=== PATIENT | female | born 1935 | race Hispanic/Latino ===

== ENCOUNTER 2017-05-25 06:58 | Day surgery (SDC) | payer MEDICARE ==
[~2017-05-25] VITALS: Ht 152.4 cm; Wt 46.6 kg
[~2017-05-25 06:58] MED LIST: CLOP75TA14 PO; LEVO50TA4 PO; PRED10TA23 PO; SODIUM CHLORIDE 0.9% 1000ML 1,000 ML IV ONE
[2017-05-25 08:14] VITALS: BP 101/62
== END 2017-05-25 09:00 | disposition home or self-care (01) ==
LOC: DAH 06:58 → ENDO 06:58
PROVIDERS: ATTEND Internal Medicine
DX: R93.3 Abnormal findings on diagnostic imaging of other parts of digestive tract (principal); Z53.9 Procedure and treatment not carried out, unspecified reason
CPT/HCPCS: J7030

== ENCOUNTER 2017-05-30 07:00 | Day surgery (SDC) | payer MEDICARE ==
[~2017-05-30] VITALS: Ht 152.4 cm; Wt 45.9 kg
[2017-05-30 07:21] VITALS: BP 106/58
[2017-05-30] MEDS ORDERED: LEVOFLOXACIN 500 MG/D5W 100 ML 100 ML ONE (08:51)
[2017-05-30 10:08] VITALS: BP 121/59
[2017-05-30] MEDS ORDERED: ONDA4TAB4 PO (10:19)
[2017-05-30 10:35] VITALS: BP 113/58
[2017-05-30 10:44] VITALS: BP 108/55
[2017-05-30 10:59] VITALS: BP 96/53
[2017-05-31] MEDS ORDERED: CHOL500050 PO (17:40)
[2017-05-31] MEDS ORDERED: PRED2.5T PO (17:40)
[2017-05-31] MEDS ORDERED: RANI-248 PO (17:40)
[2017-05-31] MEDS ORDERED: SULF500T8 PO (17:40)
== END 2017-05-30 11:15 | disposition home or self-care (01) ==
LOC: ENDO 07:00 → DAH 07:00 → ENDO 11:15
PROVIDERS: ATTEND Internal Medicine
DX: K86.2 Cyst of pancreas (principal); E03.8 Other specified hypothyroidism; M81.8 Other osteoporosis without current pathological fracture; Z86.73 Personal history of transient ischemic attack (TIA), and cerebral infarction without residual deficits; I73.89 Other specified peripheral vascular diseases; Z79.01 Long term (current) use of anticoagulants; Z79.899 Other long term (current) drug therapy; Z98.890 Other specified postprocedural states; Z90.49 Acquired absence of other specified parts of digestive tract
CPT/HCPCS: 36415; 43238; 82150; 82378; 88173; 88305; A4215; J1956; J7030; 43232

== ENCOUNTER 2017-05-31 11:24 | Observation (INO) | payer MEDICARE ==
[~2017-05-31] VITALS: Ht 152.4 cm; Wt 47.9 kg
[~2017-05-31 11:24] MED LIST changes: +ONDA4TAB4 PO; -SODIUM CHLORIDE 0.9% 1000ML 1,000 ML IV ONE
[2017-05-31] MEDS ORDERED: ONDANSETRON ODT 4 MG TAB ONE (11:34)
[2017-05-31 12:02] LABS: BASOPHILS % (AUTO) 0.2 % (0.0-5.0); EOSINOPHILS % (AUTO) 0.2 % (0.0-8.0); HEMATOCRIT 37.2 % (36-48); LYMPHOCYTES % (AUTO) 12.7 % (21.0-51.0); MEAN CORPUSCULAR VOLUME 91.2 fL (79-99); MONOCYTES % (AUTO) 6.6 % (3.0-13.0); NEUTROPHILS % (AUTO) 80.3 % (40.0-77.0); PLATELET COUNT (AUTO) 208 K/uL (130-400); RED BLOOD CELL COUNT(AUTO) 4.08 MIL/uL (4.00-5.50); RED CELL DISTRIBUTION WIDTH 14.3 % (11.0-15.5); WHITE BLOOD COUNT (AUTO) 13.4 K/uL (4.8-10.8)
[2017-05-31 12:20] LABS: BILIRUBIN,TOTAL 1.1 mg/dL (0.2-1.0); CREATININE 0.7 mg/dL (0.5-1.5); POTASSIUM 3.4 mmol/L (3.5-5.1)
[2017-05-31 12:30] LABS: RAPID GROUP A STREP NEGATIVE (NEGATIVE)
[2017-05-31 12:32] LABS: B-TYPE NATRIURETIC PEPTIDE 39 pg/mL (0-100)
[2017-05-31] MEDS ORDERED: POTASSIUM CHLORIDE 20 MEQ ERTAB PO ONE (13:05)
[2017-05-31] MEDS ORDERED: SODIUM CHLORIDE 0.9% 1000ML 1,000 ML IV ONE (13:06)
[2017-05-31 14:15] LABS: APPEARANCE,URINE Clear (CLEAR); BILIRUBIN,URINE Negative (NEGATIVE); COLOR,URINE Yellow (YELLOW); GLUCOSE, URINE (UA) Negative (NEGATIVE); KETONES,URINE 15 mg/dL (NEGATIVE); LEUKOCYTE ESTERASE ,URINE Negative (NEGATIVE); NITRATE,URINE Negative (NEGATIVE); OCCULT BLOOD,URINE Moderate (NEGATIVE); PROTEIN,URINE Negative (NEGATIVE)
[2017-05-31 14:43] LABS: BACTERIA,URINE Rare /HPF (None Seen); SQUAMOUS EPITHELIAL CELL,UR Rare /LPF (0-2); WBC,URINE 0-1 /HPF (0-1)
[2017-05-31] MEDS ORDERED: SULF500T8 PO (17:40)
[2017-05-31] MEDS ORDERED: CHOL500050 PO (17:40)
[2017-05-31] MEDS ORDERED: PRED2.5T PO (17:40)
[2017-05-31] MEDS ORDERED: RANI-248 PO (17:40)
[2017-05-31 17:43] VITALS: BP 108/55
[2017-05-31] MEDS ORDERED: ONDANSETRON HCL 4 MG/2 ML VIAL IVP PRN (18:00)
[2017-05-31] MEDS ORDERED: CLONIDINE HCL 0.1 MG TABLET PO PRN (18:00)
[2017-05-31] MEDS ORDERED: MORPHINE SULFATE 2 MG/ML 1ML SYG IVP PRN (18:00)
[2017-05-31] MEDS ORDERED: ACETAMINOPHEN 325 MG TAB PO PRN ×2 (18:00)
[2017-05-31 20:00] VITALS: BP 98/48
[2017-05-31] MEDS ORDERED: LEVOFLOXACIN 500 MG/D5W 100 ML 100 ML IV SCH (20:00)
[2017-05-31] MEDS ORDERED: SODIUM CHLORIDE 0.9% 1000ML 1,000 ML IV SCH (22:45)
[2017-06-01] VITALS: BP 106/60
[2017-06-01 04:00] VITALS: BP 90/46
[2017-06-01 04:12] LABS: BASOPHILS % (AUTO) 0.2 % (0.0-5.0); EOSINOPHILS % (AUTO) 0.3 % (0.0-8.0); HEMATOCRIT 35.5 % (36-48); LYMPHOCYTES % (AUTO) 16.9 % (21.0-51.0); MEAN CORPUSCULAR HEMOGLOBIN 31.1 pg (27.0-33.0); MEAN CORPUSCULAR VOLUME 91.4 fL (79-99); MONOCYTES % (AUTO) 7.4 % (3.0-13.0); NEUTROPHILS % (AUTO) 75.2 % (40.0-77.0); PLATELET COUNT (AUTO) 221 K/uL (130-400); RED BLOOD CELL COUNT(AUTO) 3.89 MIL/uL (4.00-5.50); RED CELL DISTRIBUTION WIDTH 14.5 % (11.0-15.5); WHITE BLOOD COUNT (AUTO) 11.7 K/uL (4.8-10.8)
[2017-06-01 04:19] LABS: ALBUMIN 2.8 g/dL (3.5-5.0); BILIRUBIN,TOTAL 1.1 mg/dL (0.2-1.0); CREATININE 0.7 mg/dL (0.5-1.5); POTASSIUM 3.8 mmol/L (3.5-5.1); TOTAL PROTEIN, SERUM 5.8 g/dL (6.0-8.3)
[2017-06-01 08:00] VITALS: BP 99/56
[2017-06-01] MEDS ORDERED: HYDRALAZINE HCL 20 MG/ML VIAL IV PRN (09:00)
[2017-06-01] MEDS ORDERED: LACTULOSE 20 GM/30 ML UDCUP PO PRN (09:00)
[2017-06-01] MEDS ORDERED: NITROGLYCERIN 0.4 MG SL TAB SL PRN (09:00)
[2017-06-01] MEDS ORDERED: PANTOPRAZOLE SODIUM 40 MG TABLET.DR PO SCH (09:00)
[2017-06-01] MEDS ORDERED: ONDANSETRON HCL 4 MG/2 ML VIAL IV PRN (09:00)
[2017-06-01] MEDS ORDERED: ACETAMINOPHEN 325 MG TAB PO PRN ×2 (09:00)
[2017-06-01] MEDS ORDERED: MAG HYDROX/AL HYDROX/SIMETH ES 30 ML SUSP UDCUP PO PRN (09:00)
[2017-06-01] MEDS ORDERED: GUAIFENESIN-DM 200/20 MG 10 ML PO PRN (09:00)
[2017-06-01] MEDS ORDERED: ACETAMINOPHEN-CODEINE 300/30MG TAB PO PRN (09:45)
[2017-06-01] MEDS ORDERED: MORPHINE SULFATE 2 MG/ML 1ML SYG IVP PRN (09:45)
[2017-06-01 11:00] VITALS: BP 108/57
[2017-06-01 16:00] VITALS: BP 100/56
[2017-06-01] MEDS ORDERED: SULFASALAZINE 500 MG TAB.DR PO SCH (21:00)
[2017-06-02] MEDS ORDERED: PREDNISONE 5 MG TABLET PO SCH (09:00)
[2017-06-02] MEDS ORDERED: LEVOTHYROXINE 50 MCG TABLET PO SCH (09:00)
[2017-06-08] MEDS ORDERED: ERGOCALCIFEROL (VITAMIN D2) 50,000 UNIT CAPSULE PO SCH (09:00)
== END 2017-06-01 19:41 | disposition home or self-care (01) ==
LOC: EDH 11:24 → EDHIP 16:15 → 3BH 17:02
PROVIDERS: ADMIT Family Medicine; ATTEND Family Medicine
DX: R10.9 Unspecified abdominal pain (principal); E78.5 Hyperlipidemia, unspecified; K59.00 Constipation, unspecified; E03.9 Hypothyroidism, unspecified; I25.10 Atherosclerotic heart disease of native coronary artery without angina pectoris; R11.2 Nausea with vomiting, unspecified
CPT/HCPCS: 36415 ×2; 71045; 80053 ×2; 81001; 82150; 83690 ×2; 83880; 84484; 85025 ×2; 87804 ×2; 87880; 93005; 96361; 96365; 99285; G0378 ×27; J1956; J7030 ×2